=== PATIENT | female | born 1940 | race Caucasian/White ===

== ENCOUNTER 2021-07-23 15:13 | Inpatient (IN) | payer OTHER ==
[~2021-07-23] VITALS: Ht 170.2 cm; Wt 64.9 kg
[~2021-07-23 15:13] MED LIST: PROZAC20 MG PO; ZOCOR5 MG PO; ZOLOFT25 MG PO
[2021-07-23] MEDS ORDERED: VASOTEC10 MG PO (15:39)
[2021-07-23] MEDS ORDERED: FORTAMET500 MG PO (15:39)
[2021-07-23] MEDS ORDERED: SYNTHROID50 MCG PO (15:40)
[2021-07-23] MEDS ORDERED: GRALISE600 MG PO (15:40)
[2021-07-23] MEDS ORDERED: ATORVASTATIN CA10 MG PO (15:40)
[2021-07-23] MEDS ORDERED: CLONAZEPAM0.5 M1 PO (15:40)
--- NOTE | 2021-07-23 15:44 | NUR ---
SE RECIBE PTE ALERTA Y ORIENTADA, ACOMPANADA DE FAMIALIAR. LA CUAL REFIERE TENER [place] RECTAL DESDE HACE 2 SEMANAS.
--- NOTE | 2021-07-23 16:47 | NUR ---
EVALUA PTE. SE EDUCA A PTE SOBRE [place] MEDICO. PTE REFIERE COMPRENDER. SE REALIZAN MUESTRAS DE LABORATORIO BAJO MEDIDAS ASEPTICAS. SE ADMINISTRAN MEDICAMENTOS EFREN ORDEN MEDICA. SE NOTIFICA CT.
--- NOTE | 2021-07-24 01:42 | NUR ---
SE RECIBE PTE ALERTA Y ORIETNADO POR 3 EN EL AREA DE OBSERVACION EL CUBILO #7 EN TEMO CON BARANDAS ELEVADA Y TIMBRE ACCESIBLE SE OBSERVA VENOPUNCION PATENTE Y CARLITO DE EDEMA
--- NOTE | 2021-07-24 07:08 | NUR ---
SE RECIBE PTE DEL TURNO ANTERIOR EN TEMO NIVEL MAS BAJO CON BARANDAS ELEVADAS. PACIENTE AL MOMENTO DE RECIBIR TURNO SE ENCONTRABA DORMIDA. PRESENTA BUEN PATRON RESPIRATORIO Y PIEL TIBIA AL TACTO CON AREA DE VENOPUNCION PATENTE Y CARLITO DE EDEMA Y/O ENROJECIMIENTO RECIBIENDO 0.9% NSS AT 120 ML/HR. PACIENTE CONSULTADA CON DR. LOGAN NORMAN POR RECTAL BLEEDING.
[2021-07-24] MEDS ORDERED: ALENDRONATE SOD70 MG (10:38)
[2021-07-31] MEDS ORDERED: ALENDRONATE SOD70 MG PO (11:58)
[2021-07-31] MEDS ORDERED: Lipitor 10MG TABLET PO (11:58)
[2021-07-31] MEDS ORDERED: FORTAMET500 MG PO (11:58)
[2021-07-31] MEDS ORDERED: LEVOTHYROXINE50 MCG PO (11:58)
[2021-07-31] MEDS ORDERED: FAMOTIDINE20 MG PO (11:58)
[2021-07-31] MEDS ORDERED: NEURONTIN600 MG PO (11:58)
[2021-07-31] MEDS ORDERED: CANASA1000 MG RECTAL (11:58)
[2021-07-31] MEDS ORDERED: Zestril PO (11:58)
[2021-07-31] MEDS ORDERED: CLONAZEPAM0.5 MG PO (11:58)
[2021-07-31] MEDS ORDERED: SERTRALINE HCL25 MG PO (11:58)
== END 2021-07-31 21:09 | disposition home or self-care (01) | DRG 387 ==
LOC: ER 15:13 → SEC-K 07-24 10:12 → MEDI 07-24 10:12
PROVIDERS: ADMIT Internal Medicine; ATTEND Internal Medicine
PROC: BW21YZZ Computerized Tomography (CT Scan) of Abdomen and Pelvis using Other Contrast (ICD-10-PCS; 2021-07-24)
PROC: 0DBP8ZX Excision of Rectum, Via Natural or Artificial Opening Endoscopic, Diagnostic (ICD-10-PCS; principal; 2021-07-27)
PROC: 0DBN8ZX Excision of Sigmoid Colon, Via Natural or Artificial Opening Endoscopic, Diagnostic (ICD-10-PCS; 2021-07-27)
DX: K51.80 Other ulcerative colitis without complications (principal); E11.9 Type 2 diabetes mellitus without complications; K51.311 Ulcerative (chronic) rectosigmoiditis with rectal bleeding; I10 Essential (primary) hypertension; E03.8 Other specified hypothyroidism; Z79.4 Long term (current) use of insulin; E78.49 Other hyperlipidemia

== ENCOUNTER 2021-11-28 17:40 | Emergency (ER) | payer OTHER ==
[~2021-11-28] VITALS: Ht 167.6 cm; Wt 63.5 kg
[~2021-11-28 17:40] MED LIST changes: +ALENDRONATE SOD70 MG; +ALENDRONATE SOD70 MG PO; +ATORVASTATIN CA10 MG PO; +CANASA1000 MG RECTAL; +CLONAZEPAM0.5 M1 PO; +CLONAZEPAM0.5 MG PO; +FAMOTIDINE20 MG PO; +FORTAMET500 MG PO; +GRALISE600 MG PO; +LEVOTHYROXINE50 MCG PO; +Lipitor 10MG TABLET PO; +NEURONTIN600 MG PO; +SERTRALINE HCL25 MG PO; +SYNTHROID50 MCG PO; +VASOTEC10 MG PO; +Zestril PO
== END 2021-11-28 23:10 | disposition home or self-care (01) ==
LOC: ER 17:40
DX: K51.80 Other ulcerative colitis without complications (principal); N39.0 Urinary tract infection, site not specified; R10.84 Generalized abdominal pain

== ENCOUNTER → 2022-04-29 13:07 | Outpatient (CLI) | payer OTHER | END | disposition home or self-care (01) | LOC: NUCLEAR 13:00 | PROVIDERS: ATTEND Psychiatry & Neurology Neurology | DX: G30.8 Other Alzheimer's disease (principal) | CPT/HCPCS: 78803; A9557 ==

== ENCOUNTER 2023-04-19 13:47 | Outpatient (CLI) | payer OTHER | END 2023-04-19 13:50 | disposition home or self-care (01) | LOC: RAD 13:47 | PROVIDERS: ATTEND Physical Medicine & Rehabilitation | DX: M16.11 Unilateral primary osteoarthritis, right hip (principal); M25.551 Pain in right hip ==